=== PATIENT | female | born 1995 | race Caucasian/White ===

== ENCOUNTER 2017-01-05 21:35 | Emergency (ER) | payer BC, OTHER ==
[~2017-01-05] VITALS: Ht 162.6 cm; Wt 78.5 kg
[2017-01-05 21:36] VITALS: BP 122/66; PULSE 92; TEMP 36.8; O2SAT 94; Ht 162.6 cm; Wt 78.5 kg
--- NOTE | 2017-01-05 22:31 | DIAGNOSTIC IMAGING REPORT ---
L ANKLE MIN 3 VIEWS ROUTINE CLINICAL HISTORY: 21 years-old Female presenting with L ankle pain. TECHNIQUE: Frontal, mortise, and lateral views of the left ankle were obtained. COMPARISON: None. FINDINGS: Positioning is suboptimal, limiting diagnostic sensitivity. Allowing for this, ankle mortise intact. No acute fracture or malalignment. No evidence of ankle joint effusion. No radiographic soft tissue abnormality. IMPRESSION: No acute osseous injury of the left ankle. Electronically signed by: Kit Richards M.D. 01/05/2017 10:29 PM Dictated Date/Time: 01/05/2017 10:28 PM
--- NOTE | 2017-01-05 22:33 | DIAGNOSTIC IMAGING REPORT ---
L FOOT MIN 3 VIEWS ROUTINE CLINICAL HISTORY: 21 years-old Female presenting with L foot and ankle pain. TECHNIQUE: Frontal, oblique, and lateral views of the left foot were obtained. COMPARISON: None. FINDINGS: Transversely oriented fracture of the base of the fifth metatarsal with intra-articular extension. This is nondisplaced. No malalignment. No additional fracture is evident. No radiographic soft tissue abnormality. IMPRESSION: Acute nondisplaced fracture of the base of the fifth metatarsal with intra-articular extension (pseudo-Hull fracture). Electronically signed by: Kit Richards M.D. 01/05/2017 10:31 PM Dictated Date/Time: 01/05/2017 10:29 PM
[2017-01-05] MEDS ORDERED: HYDR-5688 PO (22:39)
[2017-01-05] MEDS ORDERED: NORCO 5/325MG HOME PACK PO ONE (22:45)
[2017-01-05] MEDS ORDERED: NORCO 5/325MG HOME PACK ONE (22:45)
[2017-01-05] MEDS ORDERED: BCPILLS PO (22:52)
[2017-01-05] MEDS ORDERED: LISD60CA PO (22:52)
[2017-01-05] MEDS ORDERED: CLR10 PO (22:52)
[2017-01-05] MEDS ORDERED: FLUO10CA48 PO (22:52)
[2017-01-05] MEDS ORDERED: DEXT1TAB15 PO (22:52)
--- NOTE | 2017-01-06 04:36 | EMERGENCY ROOM VISIT NOTE ---
ED Visit Note First contact with patient: 21:45 Chief Complaint: I hurt my left ankle and foot. History of Present Illness: Ms. Conner is a 21-year-old white female who ambulates into the ED on crutches complaining of left lateral ankle and foot pain. Patient reports she they'll down 2-3 steps last evening while she was wearing high heels and injured her left ankle and foot. Since her fall last night she reports she has noted increasing swelling and bruising over the lateral foot and ankle and a worsening pain. Currently she describes her pain as a sharp and throbbing sensation. She rates her discomfort 8/10. Her pain is nonradiating. The majority of her pain is located over the fifth metatarsal but she does have some mild discomfort in the ligamentous structures of the ankle. Her pain worsens with ambulation and palpation. She has not identified any alleviating factors related to the pain. She has not taken any medication for pain prior to arrival at the hospital. She denies any associated symptoms including hip pain, knee pain, lower leg pain, foot weakness/numbness/tingling, previous significant injuries or surgeries to the left ankle or foot. Review of Systems: As noted above in history of present illness. Past Medical History: Attention deficit disorder, seasonal allergies. Current Medications: Prozac, Vyvanse, Dextroamphetamine sulfate. Claritin. control. Allergies to Medications: Patient denies. Social History: Patient is currently University student; she feels safe in her home environment; she denies tobacco use. Physical Examination: Vital Signs: Date Time Temp Pulse Resp B/P (MAP) Pulse Ox O2 Delivery O2 Flow Rate FiO2 01/05/17 21:36 36.8 92 16 122/66 94 Room Air GENERAL: 21-year-old female in mild distress due to pain, nontoxic-appearing, afebrile and hemodynamically stable. NEUROLOGICAL: Awake, alert and oriented to person, place and time. Answering questions appropriately and following commands. SKIN: Warm, dry and pink. LEFT LOWER EXTREMITY: No gross bony deformity. No shortening or malrotation. No tenderness in the hip or knee. Mild tenderness over the lateral aspect of the ankle predominantly in the area of the anterior and inferior ligamentous structures around the malleolus. There is minimal swelling in this area but I do not appreciate any bony deformity or crepitus. No tenderness with stressing of the ligamentous structures of the ankle. I do not appreciate any laxity. Additionally there is moderate tenderness with significant swelling and early ecchymosis over the proximal aspect of the fifth metatarsal. Patient has moderate to severe tenderness in this area. I do not appreciate any bony deformity or crepitus. Patient has full range of motion in plantar flexion, dorsiflexion, inversion and eversion of the ankle and flexion and extension of all toes throughout the foot. Throughout the foot the skin was warm and pink, capillary refill is brisk. Distal pulses are intact. ED Course: Patient is assessed as noted above. Patient's medication list was reviewed. Patient was given one [place] 5/325 mg tablet by mouth for pain and ice for pain and swelling. Left Ankle X-Rays: Were read by myself and the radiologist and shows no acute fractures or dislocations. Left Foot X-Rays: Were read by myself and the radiologist and shows an acute nondisplaced fracture of the base of the fifth metacarpal. Radiologist notes that there was intra-articular extension; pseudo-Hull fracture. Patient was placed in a posterior ankle splint of Ortho-Glass and crutch for nonweightbearing. Patient requested that I speak to her mother; patient called her mother and I informed ever today's ED visit. Patient was educated about today's findings and instructed on her treatment plan ; she verbalizes understanding and agreement with this plan. Clinical Impression: Nondisplaced acute fracture the base the fifth metatarsal with intra-articular extension. Decision-Making: Initially my differential diagnosis I considered ankle fracture , foot fracture, ankle sprain, foot sprain, contusion and other causes. Disposition: Patient discharged home in stable condition; prior to departure she was reassessed and subjectively reported she was feeling the same and rated her discomfort 8/10. Plan: Comfort measures were discussed with the patient including rest, ice, elevation , splint and crutch use and a sliding pain medication scale of ibuprofen, seated minutes and and [place]. She was given appropriate narcotic precautions and her name was checked in the state database and no red flags were noted. Patient is encouraged to follow-up with Dr. Killian, commercial marketing specialist for definitive care and treatment. Patient is encouraged return ED for worsening/uncontrolled pain, uncontrolled swelling, foot weakness/numbness/tingling or any new/concerning symptoms.
== END 2017-01-05 22:54 | disposition home or self-care (01) ==
LOC: C.EDB 21:36 → C.EDD 22:54
DX: S92.354A Nondisplaced fracture of fifth metatarsal bone, right foot, initial encounter for closed fracture (principal); W10.9XXA Fall (on) (from) unspecified stairs and steps, initial encounter; F90.9 Attention-deficit hyperactivity disorder, unspecified type; Z79.3 Long term (current) use of hormonal contraceptives; Z79.899 Other long term (current) drug therapy